=== PATIENT | female | born 1950 ===

== ENCOUNTER → 2025-01-22 | Day surgery (SDC) | payer OTHER ==
[2025-01-16 12:17] VITALS: BP 170/80
[~2025-01-22] VITALS: Ht 162.6 cm; Wt 65.8 kg
[~2025-01-22] MED LIST: ARMOUR THYROID30 M1 PO; CHLORHEXIDINE GLUCONATE 120 ML BOTTLE TOP ONE; CIPROFLOXACIN IN 5 % DEXTROSE 400 MG/200 ML PIGGYBAG IV ONE; EPINEPHRINE HCL/PF 1 MG/ML AMPUL ONE; GENTAMICIN SULFATE 40 MG/ML VIAL ONE; LIDOCAINE HCL 2%/EPINEPHRINE 20ML VIAL IJ ONE; MACROBID 100 M100 MG PO; TRAM1TAB98 PO
== END | disposition home or self-care (01) ==
LOC: ADM 01-16 10:45 → CIR.AMB 07:00
PROVIDERS: ATTEND Obstetrics & Gynecology Gynecology
DX: N81.11 Cystocele, midline (principal); N81.6 Rectocele; N81.5 Vaginal enterocele; Z88.0 Allergy status to penicillin; Z88.8 Allergy status to other drugs, medicaments and biological substances; Z91.013 Allergy to seafood